=== PATIENT | female | born 1990 | race Hispanic/Latino ===

== ENCOUNTER 2025-05-03 17:11 | Emergency (ER) | payer OTHER | END 2025-05-03 18:22 | disposition home or self-care (01) | LOC: ERS 17:11 | DX: O03.9 Complete or unspecified spontaneous abortion without complication (principal); O24.319 Unspecified pre-existing diabetes mellitus in pregnancy, unspecified trimester; O99.280 Endocrine, nutritional and metabolic diseases complicating pregnancy, unspecified trimester; Z79.84 Long term (current) use of oral hypoglycemic drugs; Z79.890 Hormone replacement therapy; Z3A.00 Weeks of gestation of pregnancy not specified | CPT/HCPCS: 36415; 84702; 99284 ==